=== PATIENT | male | born 1985 | race Caucasian/White ===

== ENCOUNTER 2021-08-30 12:41 | Emergency (ER) | payer BC ==
[~2021-08-30] VITALS: Ht 177.8 cm; Wt 77.1 kg
[~2021-08-30 12:41] MED LIST: SILVADENE20 GM TOP
== END 2021-08-30 15:01 | disposition home or self-care (01) ==
LOC: ED 12:41
DX: S90.01XA Contusion of right ankle, initial encounter (principal); F17.200 Nicotine dependence, unspecified, uncomplicated; Z88.5 Allergy status to narcotic agent; W22.8XXA Striking against or struck by other objects, initial encounter
CPT/HCPCS: 73610; 99283-25

== ENCOUNTER 2022-04-22 01:32 | Emergency (ER) | payer BC ==
[2022-04-22] MEDS ORDERED: CYCLOBENZAPRINE5 MG PO (03:44)
[2022-04-22] MEDS ORDERED: ONDANSETRON ODT8 MG PO (03:45)
== END 2022-04-22 04:30 | disposition home or self-care (01) ==
LOC: ED 01:32
DX: S06.0X0A Concussion without loss of consciousness, initial encounter (principal); E86.0 Dehydration; H60.90 Unspecified otitis externa, unspecified ear; F17.200 Nicotine dependence, unspecified, uncomplicated; Y04.8XXA Assault by other bodily force, initial encounter
CPT/HCPCS: 36415; 70450; 72125; 73110; 80053; 85025; 99284-25; G0480; J1170; J2405; J7121